=== PATIENT | female | born 1965 | race Caucasian/White ===

== ENCOUNTER 2019-09-06 10:12 | Emergency (ER) | payer OTHER, SELFPAY ==
--- NOTE | ~2019-09-06 | XR_ITS ---
EXAMINATION: XR chest 2V DATE: 09/06/2019 11:13 INDICATION: Near syncope. TECHNIQUE: Frontal and lateral views of the chest were obtained. COMPARISON: Chest 2 views 03/17/2019 FINDINGS: There is mild scarring at the lung apices. No pleural effusion or pneumothorax. The heart s ize is normal. Surgical clips overlie the anterior chest wall. IMPRESSION: 1. Mild scarring at the lung apices. Reviewed, dictated and finalized at location A.
[2019-09-06 10:15] VITALS: BP 158/89; PULSE 69; RESP 16; TEMP 36.8; O2SAT 99
--- NOTE | 2019-09-06 10:21 | ED.SYNCOPE ---
HPI - Syncope General Chief Complaint: Syncope Stated Complaint: seeing spots, tunnel vision Time Seen by Provider: 09/06/19 10:21 Source: patient Mode of arrival: ambulatory Limitations: no limitations History of Present Illness HPI narrative: Patient is a 54-year-old female with a history of breast cancer, currently in remission, who presents for evaluation of near syncope. Patient reports that she was in a meeting, feeling very stressed out after speaking with coworkers, when she suddenly began to see spots. Patient denied any vision loss, numbness, or syncope. She did not lose consciousness. Patient denies any nausea or vomiting. No chest pain, shortness of breath, lightheadedness or dizziness. 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 Patient reports anxiety, no depression. No leg swelling or pain. No history of cardiac problems. No recent car or air travel. No rashes. No recent sick contacts. Patient states she was prompted by a coworker to seek care in the emergency department, she denies any vision changes or seeing spots at this time. Related Data Allergies Allergy/AdvReac Type Severity Reaction Status Date / Time sulfanilamide AdvReac Unknown Gastrointestinal Verified 09/06/19 10:24 Upset Review of Systems Review of Systems: Narrative: CONSTITUTIONAL: Denies fever, chills, or sweats. EYES: Denies current visual changes, redness, or discharge. ENT: Denies rhinorrhea, congestion, sore throat, or otalgia. CARDIOVASCULAR: Denies chest pain, palpitations, or edema. RESPIRATORY: Denies cough or dyspnea. GASTROINTESTINAL: Denies abdominal pain, nausea, vomiting, or diarrhea. GENITOURINARY: Denies dysuria or hematuria. SKIN: Denies rash or itching. MUSCULOSKELETAL: Denies back pain, joint pain, or myalgia. NEUROLOGIC: Denies headache, numbness, or weakness. PSYCHIATRIC: Reports anxiety PMFSH Past Medical History Medical History Hx of breast cancer ALEKSANDER Surgical History Surgical History Hx of bilateral mastectomy Family History Family History Mother Hypertension Family history of malignant neoplasm of breast in first degree relative Sibling Family history of coronary artery disease, Onset Age: 62 Social History Social History Smoking status: Never smoker Alcohol intake: current Gender identity (if verbalized by the patient): Female Exam Narrative: Exam Narrative: GENERAL: Awake, alert, conversant HEAD: Normocephalic, atraumatic. EYES: PERRLA and EOMI. ENT: Nares clear, no rhinorrhea or epistaxis. Mucous membranes moist. NECK: Supple. CHEST: No respiratory distress, breathing even and non labored HEART: Regular rate, sinus rhythm ABDOMEN:Non distended, non tender EXTREMITIES: Normal range of motion. No edema. SKIN: Warm, dry, no rash. NEURO:No focal deficits. Alert and oriented x3. Finger to nose intact bilaterally. EOMs intact without nystagmus. No facial droop/asymmetry noted bilaterally. Grimace intact. Intact sensation in face. Hearing intact bilaterally. Shoulder shrug intact. Strength 5/5 bilateral upper extremities. Strength 5/5 bilateral lower extremities. Reflexes 2+ patellar. Ambulatory with a narrow base, steady gait. Course Vital Signs Vital signs: Vital Signs Temperature 36.8 C 09/06/19 10:15 Pulse Rate 69 09/06/19 10:15 Respiratory Rate 16 09/06/19 10:15 Blood Pressure 158/89 H 09/06/19 10:15 Pulse Oximetry 99 09/06/19 10:15 Temperature 36.8 C 09/06/19 10:15 Pulse Rate 75 09/06/19 11:30 Respiratory Rate 16 09/06/19 10:15 Blood Pressure 157/102 H 09/06/19 11:30 Pulse Oximetry 100 09/06/19 10:2
[2019-09-06 10:23] VITALS: O2SAT 100
--- NOTE | 2019-09-06 10:27 | PC.NURSE ---
pt refuses iv start at this time. will speak to
[2019-09-06] MEDS: ACETAMINOPHEN 500 MG TABLET 1000 MG PO (11:20)
[2019-09-06 11:29] VITALS: BP 136/71; BP 143/92; PULSE 54
[2019-09-06 11:30] VITALS: BP 157/102; PULSE 75
--- NOTE | 2019-09-06 11:51 | ECG_ITS ---
Measurements Intervals [place] Rate: 62 P: 61 DE: 138 QRS: 65 QRSD: 85 T: 66 QT: 383 QTc: 390 Interpretive Statements SINUS RHYTHM BORDERLINE ST ABNORMALITY- ANTERIOR LEADS BORDERLINE ECG Electronically Signed On 09-06-2019 13:00:58 CDT by Guido Lester D.O.
[2019-09-06 11:54] LABS: Basophils Absolute Auto 0.1 K/mm3 (0.0-0.1); Basophils Percent Auto 0.6 % (0.2-1.2); Eosinophils Percent Auto 0.5 % (0-4.4); Hematocrit 44.2 % (37.0-47.0); Hemoglobin 14.7 g/dL (12.0-15.0); Immature Granulocyte Absolute 0.02 K/mm3 (0.00-0.031); Immature Granulocyte Percent A 0.2 % (0-0.5); Lymphocytes Absolute Auto 1.54 K/mm3 (0.9-3.2); Lymphocytes Percent Auto 17.6 % (18.3-44.2); Mean Corpuscular HGB Conc 33.3 g/dl (32-36); Mean Corpuscular Hemoglobin 31.2 pg (26-34); Mean Corpuscular Volume 93.8 fl (80-100); Mean Platelet Volume 11.1 fl (7.4-10.4); Monocytes Absolute Auto 0.5 K/mm3 (0.1-0.6); Monocytes Percent Auto 5.8 % (2.6-8.5); Neutrophils Absolute Auto 6.6 K/mm3 (1.3-6.7); Neutrophils Percent Auto 75.3 % (45.5-73.1); Platelet Count Result 142 k/mm3 (150-375); Red Blood Count 4.71 M/mm3 (4.2-5.4); Red Cell Distribution Width 13.6 % (11.5-14.5); White Blood Count 8.7 K/mm3 (4.5-10.0)
[2019-09-06 12:03] LABS: INR 1.1; Partial Thromboplastin Time 24.6 SECONDS (22.3-36.8); Prothrombin Time 13.7 Seconds (11.1-14.7)
[2019-09-06 12:08] LABS: Blood Urea Nitrogen 11 mg/dL (7-17); Calcium 9.2 mg/dL (8.4-10.2); Carbon Dioxide 27 mmol/L (22-30); Chloride 109 mmol/L (98-107); Estimated CRCL calculation 59 ml/min; Estimated Glomerular Filt Rate > 60; Glucose 104 mg/dL (65-105); Potassium 4.3 mmol/L (3.4-5.0); Sodium 138 mmol/L (137-145)
[2019-09-06 12:19] LABS: Troponin I < 0.012 ng/mL (0.000-0.034)
[2019-09-06 12:41] VITALS: BP 139/97; PULSE 58; RESP 16; O2SAT 100
== END 2019-09-06 12:42 | disposition home or self-care (01) ==
PROVIDERS: Emergency Provider Emergency Medicine; PCP Family Medicine
DX: R55 Syncope and collapse (principal); Z56.3 Stressful work schedule; Z85.3 Personal history of malignant neoplasm of breast; Z90.13 Acquired absence of bilateral breasts and nipples; R94.31 Abnormal electrocardiogram [ECG] [EKG]
CPT/HCPCS: 36415; 71046; 80048; 84484; 85025; 85610; 85730; 93005; 99284; A9270

== ENCOUNTER 2022-08-11 09:22 | Outpatient (CLI) | payer OTHER, SELFPAY ==
--- NOTE | ~2022-08-11 | XR_ITS ---
Left ankle Technique: AP, oblique, and lateral views were obtained. Clinical History: Pain Findings: No acute fracture or dislocation is seen. Osseous alignment is anatomic. Ankle mortise and other visualized joint spaces are preserved. Soft tissues are otherwise unremarkable. Impression: Unremarkable left ankle. Reviewed, dictated and finalized at location . Impression: Unremarkable left ankle.
== END 2022-08-11 09:23 | disposition home or self-care (01) ==
PROVIDERS: PCP Family Medicine; Visit Provider Nurse Practitioner Family
DX: S99.919A Unspecified injury of unspecified ankle, initial encounter (principal); X58.XXXA Exposure to other specified factors, initial encounter
CPT/HCPCS: 73610

== ENCOUNTER 2022-08-18 16:02 | Outpatient (CLI) | payer OTHER, SELFPAY ==
--- NOTE | 2022-08-18 16:06 | ECG_ITS ---
Measurements Intervals [place] Rate: 51 P: 60 GA: 151 QRS: 59 QRSD: 85 T: 66 QT: 405 QTc: 376 Interpretive Statements SINUS BRADYCARDIA BORDERLINE ECG NO PREVIOUS ECG AVAILABLE FOR COMPARISON Electronically Signed On 08-18-2022 21:09:23 CDT by Guido Lester D.O.
== END 2022-08-18 16:03 | disposition home or self-care (01) ==
LOC: ANHLAB 16:04
PROVIDERS: PCP Family Medicine; Visit Provider Family Medicine
DX: R07.89 Other chest pain (principal); R94.31 Abnormal electrocardiogram [ECG] [EKG]
CPT/HCPCS: 93005

== ENCOUNTER 2023-11-22 02:16 | Day surgery (SDC) | payer OTHER, SELFPAY ==
[2023-11-07 16:01] VITALS: BMI 22.6
[2023-11-22 13:30] VITALS: BP 141/99; PULSE 75; RESP 18; TEMP 36.2; O2SAT 97; BMI 22.2
[2023-11-22] MEDS: LACTATED RINGERS 1,000 ML 150 ML IV CONT (14:00)
--- NOTE | 2023-11-22 14:00 | P.PNAN_ITS ---
Anes - Initial Pre Proc Eval Procedure: Operation Date: 11/22/23 15:00 Proposed Procedures p Colonoscopy - Magno Bejarano MD Date/Time: 11/22/23 14:00 Surgeon: Magno Bejarano MD Pre Op Diagnosis: Positive Cologuard Patient Data Age: 58 Gender: F Height: 1.55 m Weight: 53.5 kg Last Vital Signs Temp 97.1 F L 11/22/23 13:30 Pulse 75 11/22/23 13:30 Resp 18 11/22/23 13:30 BP 141/99 H 11/22/23 13:30 Pulse Ox 97 11/22/23 13:30 O2 Del Method Room Air 11/22/23 13:30 Allergies Allergy/AdvReac Type Severity Reaction Status Date / Time Sulfa (Sulfonamide Allergy Unknown Unknown Verified 11/22/23 13:47 Antibiotics) sulfanilamide AdvReac Unknown Gastrointestinal Verified 11/22/23 13:47 Upset Patient hx anesthesia problems: none Family hx anesthesia problems: none Results Review: All pre-operative results and documents have been reviewed as part of the pre- operative evaluation. [facility] Past Medical History Medical History Ankle injury Flying phobia Hx of breast cancer ALEKSANDER Piriformis syndrome Surgical History Surgical History Hx of bilateral mastectomy Family History Family History Mother Hypertension Family history of malignant neoplasm of breast in first degree relative Breast cancer Sibling Family history of coronary artery disease, Onset Age: 62 Father Alzheimers disease Social History Social History Smoking status: Never smoker Tobacco type: cigarettes Smoking end date: 04/11/79 Alcohol intake: current Drinks per week: 5 Substance use: never Substance use type: does not use Living arrangements: with family Occupation/Education: retired 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 Anxiety, pt smokes cannabis nightly. Informed Consent: The patient's anesthetic plan and its attendant risks and benefits were discussed with the patient/family/POA. Questions were solicited and answers provided to the satisfaction of the patient/family/POA.
--- NOTE | 2023-11-22 14:18 | PM.HPGS ---
History of Present Illness History of Present Illness Consent: Risks, benefits, and alternatives have been discussed and questions answered. Patient agrees to proceed with procedure. Chief complaint: Positive Cologuard Narrative: Glendy Anderson is a 58 year old female here for colonoscopy, last one about 15 years ago, recent + cologuard Review of Systems Review of Systems: All systems reviewed & are unremarkable except as noted in HPI and below PMFSH Past Medical History Medical History (Updated 11/22/23 @ 14:19 by Magno Bejarano MD) Ankle injury Flying phobia Hx of breast cancer ALEKSANDER Piriformis syndrome Positive colorectal cancer screening using Cologuard test Surgical History Surgical History Hx of bilateral mastectomy Family History Family History Mother Hypertension Family history of malignant neoplasm of breast in first degree relative Breast cancer Sibling Family history of coronary artery disease, Onset Age: 62 Father Alzheimers disease Social History Social History Smoking status: Never smoker Tobacco type: cigarettes Smoking end date: 04/11/79 Alcohol intake: current Drinks per week: 5 Substance use: never Substance use type: does not use Living arrangements: with family Occupation/Education: retired 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 Gender identity (if verbalized by the patient): Female Spiritual care concerns: No Meds Home Medications and Allergies Allergies Allergy/AdvReac Type Severity Reaction Status Date / Time Sulfa (Sulfonamide Allergy Unknown Unknown Verified 11/22/23 13:47 Antibiotics) sulfanilamide AdvReac Unknown Gastrointestinal Verified 11/22/23 13:47 Upset Vital Signs Vital Signs - 24 hr 11/22/23 13:30 Temperature 97.1 F L Pulse Rate 75 Respiratory Rate 18 Blood Pressure 141/99 H Pulse Oximetry 97 Oxygen Delivery Room Air Exam Const: General: comfortable and no acute distress HENMT: Face/Nose/Sinus: Normal nares present Eyes: General: appearance normal, both eyes and all related structures Neck: Neck: no JVD Resp: Auscultation: clear to auscultation bilaterally Cardio: Rate: regular rate Rhythm: regular rhythm GI: Inspection: non-distended GI Palp: Yes Soft to palpation Skin: General skin exam: normal color Neuro: General: gait normal Speech: normal speech Extrem: General: normal to inspection Psych: Mental Status: mental status grossly normal Assessment and Plan Assessment and plan (1) Positive colorectal cancer screening using Cologuard test: Code(s): R19.5 - Other fecal abnormalities Status: Acute Assessment and Plan: colonoscopy
[2023-11-22 14:40] VITALS: BP 134/73; PULSE 68; RESP 23; O2SAT 99
[2023-11-22 14:50] VITALS: BP 132/79; PULSE 65; RESP 21; O2SAT 99
== END 2023-11-22 15:09 | disposition home or self-care (01) ==
PROVIDERS: PCP Nurse Practitioner Family; Referring Provider Obstetrics & Gynecology Gynecology; Visit Provider Internal Medicine Gastroenterology
PROC: 0DJD8ZZ Inspection of Lower Intestinal Tract, Via Natural or Artificial Opening Endoscopic (ICD-10-PCS; CPT 45378; principal; 2023-11-22 15:00)
DX: K64.8 Other hemorrhoids (principal); Z87.891 Personal history of nicotine dependence; Z85.3 Personal history of malignant neoplasm of breast
CPT/HCPCS: 45378; J2704; J7120